=== PATIENT | female | born 1960 | race Caucasian/White ===

== ENCOUNTER 2020-10-04 11:28 | Emergency (ER) | payer OTHER ==
[2020-10-04 11:35] VITALS: TEMP 97.7
[2020-10-04] MEDS ORDERED: CRESTOR5 MG PO (11:47)
[2020-10-04 13:13] LABS: CALCIUM 9.3 mg/dL (8.4-10.2); CREATININE, serum 0.76 (0.52-1.25); POTASSIUM 4.3 mmol/L (3.4-5.0)
[2020-10-04 13:14] LABS: BASO % 0.4 % (0.0-2.0); EOS # 0.1 (0.0-0.7); EOS % 1.2 % (0-4.0); GRAN # 3.6 (1.4-6.5); GRAN % 62.7 % (42.2-75.2); HEMOGLOBIN 11.8 g/dl (12.5-16.0); LYMPH # 1.4 (1.2-3.4); LYMPH % 24.7 % (20.0-51.0); MEAN CELL VOLUME 95 fl (80.0-100.0); MEAN CORPUSCULAR HEMOGLOBIN 31 pg (27.0-31.0); MEAN CORPUSCULAR HGB CONC 32 g/dl (33.0-37.0); MEAN PLATELET VOLUME 10.6 fl (7.4-10.4); MONO # 0.6 (0.1-0.6); MONO % 10.5 % (1.7-9.3); PLATELET COUNT 230 K/mm3 (130-400); RED BLOOD COUNT 3.85 M/mm3 (4.10-5.30); REDCELL DISTRIBUTION WIDTH-CV 12.5 % (11.5-14.5)
[2020-10-04 13:15] LABS: HEMATOCRIT 36.5 % (37.0-47.0)
[2020-10-04 14:51] LABS: TROPONIN-I < 0.012 ng/mL (0.000-0.035)
[2020-10-04 16:08] VITALS: BP 138/80; PULSE 62
== END 2020-10-04 16:05 | disposition home or self-care (01) ==
LOC: COL.ER 11:28
PROVIDERS: Emergency Medicine
DX: R55 Syncope and collapse (principal); E78.00 Pure hypercholesterolemia, unspecified
CPT/HCPCS: Q9967